=== PATIENT | male | born 1970 | race African-American/Black ===

== ENCOUNTER 2017-03-19 22:04 | Emergency (ER) | payer OTHER ==
[~2017-03-19] VITALS: Ht 182.9 cm; Wt 107.0 kg
[2017-03-19 22:18] VITALS: BP 172/99; PULSE 95; RESP 19; TEMP 98.8; O2SAT 99
[2017-03-19] MEDS ORDERED: MYCO500T PO (22:29)
[2017-03-19] MEDS ORDERED: TACR5 PO (22:29)
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
[2017-03-19] MEDS ORDERED: ACETAMINOPHEN 325 MG TAB PO ONE (23:30)
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
== END 2017-03-20 00:13 ==
LOC: NEPD 22:04
DX: Z02.89 Encounter for other administrative examinations (principal); S60.222A Contusion of left hand, initial encounter; N18.6 End stage renal disease; Z94.0 Kidney transplant status; W50.0XXA Accidental hit or strike by another person, initial encounter
CPT/HCPCS: 73130; 99283